=== PATIENT | female | born 1960 | race Caucasian/White ===

== ENCOUNTER → 2025-04-03 | Outpatient (CLI) | payer SELFPAY ==
--- NOTE | 2025-04-03 11:04 | ECHOD_ITS ---
Reason For Study Reason For Study: VALVE REPLACEMENT Procedure This was a 2D Doppler, Color Flow transthoracic echocardiogram. Exam performed in department. Left Ventricle Normal LV size. Left ventricular systolic function is normal. The left ventricular ejection fraction is 65 %. No regional wall motion abnormalities noted. Right Ventricle Normal RV size. Normal systolic function. Atria Normal left atrium. Normal right atrium. Mitral Valve Mean transmitral valve gradient 5.7 mmHg. Stable appearing mechanical mitral valve apparatus. Tricuspid Valve Normal tricuspid valve. Mild (1+) tricuspid valve insufficiency. Pulmonary artery systolic pressure is 18 mmHg. Aortic Valve Trisinus/trileaflet aortic valve. Mild focal aortic valve calcification. Peak aortic valve gradient 38 mmHg. Mean aortic valve gradient 23 mmHg. Moderate aortic stenosis. Mild (1+) aortic valve insufficiency. Pulmonic Valve The pulmonic valve is not well visualized. Great Vessels Normal aortic root. The pulmonary artery is normal size. Normal inferior vena cava. Pericardium/Pleural No pericardial effusion. MMode/2D Measurements & Calculations LVIDd: 4.4 cm IVSd: 1.2 cm LVOT diam: 1.8 cm LVIDs: 2.1 cm LVPWd: 1.1 cm LVOT area: 2.6 cm2 RVDd: 3.6 cm FS: 51.6 % asc Aorta Diam: 3.8 cm LAV(MOD-bp): 54.8 ml LVAd ap4: 21.6 cm2 LAV(MOD-bp) Indexed: 31.1 ml/m2 LVLd ap4: 7.1 cm LAV(MOD-sp2): 51.7 ml EDV(MOD-sp4): 54.6 ml LAV(MOD-sp4): 54.1 ml EDV(sp4-el): 55.7 ml LVAs ap4: 11.9 cm2 LVLs ap4: 6.1 cm ESV(MOD-sp4): 19.1 ml ESV(sp4-el): 19.5 ml EF(MOD-sp4): 65.1 % EF(sp4-el): 65.1 % LVAd ap2: 27.4 cm2 SV(MOD-sp4): 35.5 ml SV(MOD-sp2): 56.8 ml LVLd ap2: 7.8 cm SI(MOD-sp4): 20.2 ml/m2 SI(MOD-sp2): 32.2 ml/m2 EDV(MOD-sp2): 79.4 ml EDV(sp2-el): 81.8 ml LVAs ap2: 12.9 cm2 LVLs ap2: 6.5 cm ESV(MOD-sp2): 22.6 ml ESV(sp2-el): 21.9 ml EF(MOD-sp2): 71.5 % SV(sp4-el): 36.3 ml Ao sinus diam: 3.[address] Junction: 2.7 cm LA dimension(2D): 4.0 cm LA A4 area: 19.7 cm2 RA A4 area: 12.5 cm2 TAPSE: 1.4 cm Time Measurements MV dec time: 0.25 sec Doppler Measurements & Calculations MV E max aroldo: 173.0 cm/sec Lat Peak E' Aroldo: 10.7 cm/sec Med Peak E' Aroldo: 8.7 cm/sec E/E' lat: 16.1 E/E' med: 19.9 MV V2 max: 193.7 cm/sec Ao V2 max: 308.3 cm/sec AI max aroldo: 456.2 cm/sec MV max P.0 mmHg Ao max P.3 mmHg AI max P.3 mmHg MV V2 mean: 109.2 cm/sec Ao V2 mean: 229.6 cm/sec AI dec slope: 326.7 cm/sec2 MV mean P.7 mmHg Ao mean P.4 mmHg AI P1/2t: 409.0 msec MV V2 VTI: 39.4 cm Ao V2 VTI: 62.7 cm MVA(VTI): 1.6 cm2 AV (velocity ratio): 0.39 MAIA(I,D): 1.0 cm2 MAIA(V,D): 1.1 cm2 LV V1 max: 131.0 cm/sec SV(LVOT): 62.8 ml PA V2 max: 148.7 cm/sec LV V1 max P.9 mmHg LV V1 mean P.5 mmHg LV V1 mean: 87.6 cm/sec LV V1 VTI: 24.2 cm TR max aroldo: 188.8 cm/sec TR max P.3 mmHg ECHO/Echo Complete Interpretation Summary Normal LV size. Left ventricular systolic function is normal. The left ventricular ejection fraction is 65 %. Stable appearing mechanical mitral valve apparatus. Mean transmitral valve gradient 5.7 mmHg. Mean aortic valve gradient 23 mmHg. Moderate aortic stenosis. Ordering Physician: Tim Montes Referring Physician: Tim Montes MD Performed By: Yolis Cee RDCS
== END | disposition home or self-care (01) ==
PROVIDERS: PCP Physician Assistant; Referring Provider Internal Medicine Cardiovascular Disease; Visit Provider Internal Medicine Cardiovascular Disease
DX: I35.1 Nonrheumatic aortic (valve) insufficiency (principal); Z95.2 Presence of prosthetic heart valve
CPT/HCPCS: 93306